=== PATIENT | male | born 1965 | race Caucasian/White ===

== ENCOUNTER 2017-05-05 08:47 | Day surgery (SDC) | payer MEDICAID ==
[2017-05-03 16:06] LABS: BASOPHILS % (AUTO) 0.4 % (0-1); EOSINOPHILS # (AUTO) 0.2 X10'3 (0-0.9); EOSINOPHILS % (AUTO) 1.7 % (0-6); LYMPHOCYTES # (AUTO) 1.6 X10'3 (1.1-4.8); LYMPHOCYTES % (AUTO) 16.5 % (21-51); MEAN CORPUSCULAR HGB CONC 35.1 % (33.0-36.5); MEAN CORPUSCULAR VOLUME 88.5 FL (78-98); MEAN PLATELET VOLUME 7.3 FL (7.4-10.4); MONOCYTES # (AUTO) 0.7 X10'3 (0-0.9); MONOCYTES % (AUTO) 6.9 % (2-12); NEUTROPHILS # (AUTO) 7.2 X10'3 (1.8-7.7); NEUTROPHILS % (AUTO) 74.5 % (42-75); PRE OP HEMATOCRIT 45.4 % (42.0-52.0); PRE OP HEMOGLOBIN 15.9 g/dL (14.0-17.9); PRE OP PLATELET COUNT 255 X10'3 (140-440); RED BLOOD COUNT 5.14 X10'6 (4.70-6.10); RED CELL DISTRIBUTION WIDTH 12.9 % (11.5-14.5)
[2017-05-03 16:50] LABS: ALBUMIN 3.9 G/DL (3.4-5.0); ALKALINE PHOSPHATASE 103 IU/L (46-116); BLOOD UREA NITROGEN 16 MG/DL (7-18); BUN/CREATININE RATIO 16.3 (5.4-32.0); CALCIUM 9.4 MG/DL (8.5-10.1); CHLORIDE 104 MMOL/L (99-107); CREATININE 0.98 MG/DL (0.60-1.10); PRE OP ALT 16 U/L (30-65); PRE OP ANION GAP 11 (8-16); PRE OP AST 17 U/L (10-37); PRE OP BILIRUB, TOTAL 0.4 MG/DL (0.0-1.0); PRE OP GLUCOSE 92 MG/DL (70-104); PRE OP SODIUM 140 MMOL/L (135-145); TOTAL CARBON DIOXIDE 24.7 MMOL/L (24-32); TOTAL PROTEIN 7.9 G/DL (6.4-8.2); eGFR 81 ML/MIN
[2017-05-05] VITALS (12 sets, daily range): BP systolic 95–131; BP diastolic 55–85
[~2017-05-05] VITALS: Ht 175.3 cm; Wt 84.4 kg
[~2017-05-05 08:47] MED LIST: BUPIVAcaine/PF 2.5 mg/ml (0.25%) 30ml vial ONE; NO HOME MEDS; acetaminophen 325mg tablet PO ONE; ceFAZolin 1000mg inj ONE; cefazolin/dext.iso 2gm/50ml 50 ML IV ONE; famotidine 20mg tablet PO ONE; gabapentin 300mg capsule PO ONE; metoclopramide 5 mg/ml inj IV ONE; ringers solution, lacted 1,000 ML IV SCH; tranexamic acid inj. 1,000 MG in normal saline 100ml IV soln 90 ML IV ONE; vancomycin inj 1,500 MG in normal saline 300ml IV soln IV ONE
[2017-05-05] MEDS ORDERED: desflurane 240ml liquid inh. IH ONE (09:30)
[2017-05-05] MEDS ORDERED: MIDAZolam 1mg/ml 10ml vial ONE (09:38)
[2017-05-05] MEDS ORDERED: fentaNYL/PF 50MCG/1 ML 2ML syringe ONE (09:38)
[2017-05-05] MEDS ORDERED: LIDOcaine 2% 5ml jelly ONE (09:47)
[2017-05-05] MEDS ORDERED: clindamycin phosphate 150mg/ml inj. ONE (10:10)
[2017-05-05] MEDS ORDERED: LIDOcaine 1%/PF (10mg/ml) 5ml vial ONE (10:22)
[2017-05-05] MEDS ORDERED: LIDOcaine 2% (20mg/ml) 5ml vial ONE (10:22)
[2017-05-05] MEDS ORDERED: propofol inj 20 ML IV ONE (10:22)
[2017-05-05] MEDS ORDERED: rocuronium 10mg/ml inj IV ONE (10:22)
[2017-05-05] MEDS ORDERED: BUPIVAcaine/PF 2.5 mg/ml (0.25%) 30ml vial ONE (10:22)
[2017-05-05] MEDS ORDERED: dexamethasone sod phosphate 4mg/ml inj. ONE (10:23)
[2017-05-05] MEDS ORDERED: ondansetron/PF 4mg/2ml inj ONE (10:23)
[2017-05-05] MEDS ORDERED: ringers solution, lacted 1,000 ML IV SCH (11:26)
[2017-05-05] MEDS ORDERED: morphine 2 MG/ML inj. syringe IV PRN ×2 (11:30)
[2017-05-05] MEDS ORDERED: acetaminophen 1,000mg/100ml IV 100 ML IV PRN (11:30)
[2017-05-05] MEDS ORDERED: ketorolac trometh. 30mg/ml inj. IV ONE (11:30)
[2017-05-05] MEDS ORDERED: proCHLORperazine 10 MG/2 ml inj IV PRN (11:30)
[2017-05-05] MEDS ORDERED: ondansetron/PF 4mg/2ml inj IV PRN (11:30)
[2017-05-05] MEDS ORDERED: meperidine/PF 50mg/ml syringe IV PRN ×3 (11:30)
== END 2017-05-05 13:40 | disposition home or self-care (01) ==
LOC: PAS 08:47
PROVIDERS: ATTEND Orthopaedic Surgery
DX: S43.101A Unspecified dislocation of right acromioclavicular joint, initial encounter (principal); M19.211 Secondary osteoarthritis, right shoulder; F12.90 Cannabis use, unspecified, uncomplicated; F17.210 Nicotine dependence, cigarettes, uncomplicated; F32.9 Major depressive disorder, single episode, unspecified; Z88.6 Allergy status to analgesic agent; Z88.2 Allergy status to sulfonamides; Z98.890 Other specified postprocedural states; X58.XXXA Exposure to other specified factors, initial encounter; Y93.89 Activity, other specified; Y92.89 Other specified places as the place of occurrence of the external cause; Y99.8 Other external cause status
CPT/HCPCS: 23120; 23415; 23550; 36415; 64415; 80053; 85025; 93005; A4565; C1713; J1100; J2001; J2250; J2405; J2704; J3010; J3370; J3490; J7030; J7120; A7000; J0690

== ENCOUNTER 2021-06-21 15:29 | Emergency (ER) | payer MEDICAID ==
[~2021-06-21] VITALS: Ht 175.3 cm; Wt 76.4 kg
[~2021-06-21 15:29] MED LIST changes: -BUPIVAcaine/PF 2.5 mg/ml (0.25%) 30ml vial ONE; -acetaminophen 325mg tablet PO ONE; -ceFAZolin 1000mg inj ONE; -cefazolin/dext.iso 2gm/50ml 50 ML IV ONE; -famotidine 20mg tablet PO ONE; -gabapentin 300mg capsule PO ONE; -metoclopramide 5 mg/ml inj IV ONE; -ringers solution, lacted 1,000 ML IV SCH; -tranexamic acid inj. 1,000 MG in normal saline 100ml IV soln 90 ML IV ONE; -vancomycin inj 1,500 MG in normal saline 300ml IV soln IV ONE
[2021-06-21 15:46] VITALS: BP 135/87
[2021-06-21] MEDS ORDERED: SULF1TAB49 PO (17:22)
--- NOTE | 2021-06-21 17:34 | NUR ---
Pt leaving AMA, pt does not want I&D to drain shoulder
== END 2021-06-21 17:37 | disposition left against medical advice (07) ==
LOC: ER 15:30
DX: L02.413 Cutaneous abscess of right upper limb (principal); R42 Dizziness and giddiness; H53.2 Diplopia; R22.31 Localized swelling, mass and lump, right upper limb; F12.90 Cannabis use, unspecified, uncomplicated; G89.29 Other chronic pain; Z72.89 Other problems related to lifestyle; Z88.1 Allergy status to other antibiotic agents; Z88.8 Allergy status to other drugs, medicaments and biological substances; Z79.899 Other long term (current) drug therapy
CPT/HCPCS: 73030; 99283

== ENCOUNTER 2021-08-13 17:00 | Emergency (ER) | payer OTHER ==
[~2021-08-13] VITALS: Ht 175.3 cm; Wt 80.0 kg
[2021-08-13 17:32] VITALS: BP 147/91
[2021-08-13] MEDS ORDERED: cephalexin 250mg capsule PO ONE (18:40)
[2021-08-13] MEDS ORDERED: sulfamethoxazole/trimethoprim DS (800/160mg) tablet PO ONE (18:40)
[2021-08-13] MEDS ORDERED: CEPH-585 PO (18:48)
[2021-08-13] MEDS ORDERED: SULF1TAB49 PO (18:48)
--- NOTE | 2021-08-13 19:06 | NUR ---
23 reymundo removed from rt shoulder. applied steri strip to staple removal site. pt tolerated removal well with no complaints nor visible distress
--- NOTE | 2021-08-13 19:06 | NUR ---
po meds x2 given
== END 2021-08-13 19:09 | disposition home or self-care (01) ==
LOC: ER 17:01
DX: S41.001D Unspecified open wound of right shoulder, subsequent encounter (principal); G89.29 Other chronic pain; F12.90 Cannabis use, unspecified, uncomplicated; Z98.890 Other specified postprocedural states; Z72.89 Other problems related to lifestyle; Z88.1 Allergy status to other antibiotic agents; Z79.2 Long term (current) use of antibiotics; V29.9XXD Motorcycle rider (driver) (passenger) injured in unspecified traffic accident, subsequent encounter
CPT/HCPCS: 99283

== ENCOUNTER 2021-08-27 20:41 | Emergency (ER) | payer SELFPAY ==
[~2021-08-27] VITALS: Ht 170.2 cm; Wt 80.0 kg
[2021-08-28 01:58] LABS: BASOPHILS # (AUTO) 0.1 X10'3 (0-0.2); BASOPHILS % (AUTO) 0.5 % (0-1); EOSINOPHILS % (AUTO) 0.5 % (0-6); HEMATOCRIT 41.3 % (42.0-52.0); HEMOGLOBIN 13.8 g/dl (14.0-17.9); LYMPHOCYTES # (AUTO) 2.4 X10'3 (1.1-4.8); LYMPHOCYTES % (AUTO) 22.8 % (21-51); MEAN CORPUSCULAR HGB CONC 33.4 g/dL (33.0-36.5); MEAN CORPUSCULAR VOLUME 86.8 FL (78-98); MEAN PLATELET VOLUME 7.1 FL (7.4-10.4); MONOCYTES # (AUTO) 0.8 X10'3 (0-0.9); MONOCYTES % (AUTO) 7.4 % (2-12); NEUTROPHILS # (AUTO) 7.1 X10'3 (1.8-7.7); NEUTROPHILS % (AUTO) 68.8 % (42-75); PLATELET COUNT 267 X10'3 (140-440); RED BLOOD COUNT 4.76 X10'6 (4.70-6.10); RED CELL DISTRIBUTION WIDTH 14.8 % (11.5-14.5); WHITE BLOOD COUNT 10.3 X10'3 (4.5-11.0)
[2021-08-28 02:18] LABS: ALANINE AMINOTRANSFERASE 29 U/L (12-78); ALBUMIN 3.7 G/DL (3.4-5.0); ALBUMIN/GLOBULIN RATIO 0.9 (1.1-1.5); ALKALINE PHOSPHATASE 124 IU/L (46-116); ANION GAP 9 (8-16); ASPARTATE AMINO TRANSFERASE 22 U/L (10-37); BILIRUBIN,TOTAL 0.2 MG/DL (0.1-1.0); BLOOD UREA NITROGEN 18 MG/DL (7-18); BUN/CREATININE RATIO 16.8 (5.4-32.0); CALCIUM 9.5 MG/DL (8.5-10.1); CHLORIDE 103 MMOL/L (99-107); CREATININE 1.07 MG/DL (0.60-1.10); GLUCOSE 96 MG/DL (70-104); MAGNESIUM 2.2 MG/DL (1.5-2.4); POTASSIUM 3.7 MMOL/L (3.5-5.1); SODIUM 140 MMOL/L (135-145); TOTAL CARBON DIOXIDE 28.3 MMOL/L (24-32); TOTAL PROTEIN 7.8 G/DL (6.4-8.2); eGFR 71 ML/MIN
[2021-08-28] MEDS ORDERED: LEVO500T90 PO (02:43)
[2021-08-28] MEDS ORDERED: levoFLOXACIN 750MG TABLET PO ONE (02:45)
[2021-08-28 03:13] VITALS: BP 120/77
== END 2021-08-28 03:14 | disposition home or self-care (01) ==
LOC: VAS 20:42 → ER 08-28 03:14
DX: M25.511 Pain in right shoulder (principal); F17.200 Nicotine dependence, unspecified, uncomplicated; G89.29 Other chronic pain; F12.10 Cannabis abuse, uncomplicated; Z88.1 Allergy status to other antibiotic agents; Z79.899 Other long term (current) drug therapy
CPT/HCPCS: 36415; 71045; 73030; 80053; 83605; 83735; 84145; 85025; 87040; 99284

== ENCOUNTER 2021-09-11 15:43 | Emergency (ER) | payer MEDICAID ==
[~2021-09-11] VITALS: Ht 175.3 cm; Wt 83.6 kg
[2021-09-11 16:09] VITALS: BP 154/113
[2021-09-11] MEDS ORDERED: AZIT250T PO (17:21)
[2021-09-11] MEDS ORDERED: ALBU18HF2 INH (17:21)
== END 2021-09-11 18:39 | disposition home or self-care (01) ==
LOC: ER 15:45
DX: J45.901 Unspecified asthma with (acute) exacerbation (principal); F17.200 Nicotine dependence, unspecified, uncomplicated; G89.29 Other chronic pain; F12.10 Cannabis abuse, uncomplicated; Z88.1 Allergy status to other antibiotic agents; Z79.899 Other long term (current) drug therapy
CPT/HCPCS: 71045; 99283

== ENCOUNTER 2021-09-14 13:37 | Emergency (ER) | payer MEDICAID ==
[~2021-09-14] VITALS: Ht 175.3 cm; Wt 83.6 kg
[~2021-09-14 13:37] MED LIST changes: +ALBU18HF2 INH; +AZIT250T PO
[2021-09-14] MEDS ORDERED: normal saline 1000ML IV soln IVB ONE (15:25)
--- NOTE | 2021-09-14 15:59 | NUR ---
public address technician at bedside
[2021-09-14 16:00] LABS: BASOPHILS % (AUTO) 0.4 % (0-1); EOSINOPHILS # (AUTO) 0.1 X10'3 (0-0.9); EOSINOPHILS % (AUTO) 1.1 % (0-6); HEMATOCRIT 41.6 % (42.0-52.0); HEMOGLOBIN 13.8 g/dl (14.0-17.9); LYMPHOCYTES # (AUTO) 1.8 X10'3 (1.1-4.8); LYMPHOCYTES % (AUTO) 24.3 % (21-51); MEAN CORPUSCULAR HEMOGLOBIN 29.1 PG (27.0-31.0); MEAN CORPUSCULAR HGB CONC 33.2 g/dL (33.0-36.5); MEAN CORPUSCULAR VOLUME 87.7 FL (78-98); MEAN PLATELET VOLUME 7.3 FL (7.4-10.4); MONOCYTES # (AUTO) 0.5 X10'3 (0-0.9); MONOCYTES % (AUTO) 6.7 % (2-12); NEUTROPHILS % (AUTO) 67.5 % (42-75); PLATELET COUNT 269 X10'3 (140-440); RED BLOOD COUNT 4.74 X10'6 (4.70-6.10); RED CELL DISTRIBUTION WIDTH 14.8 % (11.5-14.5); WHITE BLOOD COUNT 7.5 X10'3 (4.5-11.0)
[2021-09-14 16:15] LABS: ALANINE AMINOTRANSFERASE 50 U/L (12-78); ALBUMIN 3.5 G/DL (3.4-5.0); ALBUMIN/GLOBULIN RATIO 0.9 (1.1-1.5); ALKALINE PHOSPHATASE 122 IU/L (46-116); ANION GAP 12 (8-16); ASPARTATE AMINO TRANSFERASE 33 U/L (10-37); BILIRUBIN,TOTAL 0.2 MG/DL (0.1-1.0); BLOOD UREA NITROGEN 17 MG/DL (7-18); BUN/CREATININE RATIO 19.8 (5.4-32.0); C-REACTIVE PROTEIN 0.27 MG/DL (0.0-0.5); CALCIUM 9.4 MG/DL (8.5-10.1); CHLORIDE 102 MMOL/L (99-107); CREATININE 0.86 MG/DL (0.60-1.10); GLUCOSE 86 MG/DL (70-104); MAGNESIUM 2.2 MG/DL (1.5-2.4); POTASSIUM 4.1 MMOL/L (3.5-5.1); SODIUM 143 MMOL/L (135-145); TOTAL CARBON DIOXIDE 29.4 MMOL/L (24-32); TOTAL PROTEIN 7.4 G/DL (6.4-8.2); eGFR > 90 ML/MIN
[2021-09-14 18:01] VITALS: BP 105/80
== END 2021-09-14 18:04 | disposition home or self-care (01) ==
LOC: ER 13:37
DX: I80.8 Phlebitis and thrombophlebitis of other sites (principal)
CPT/HCPCS: 36415; 71045; 80053; 83605; 83735; 84145; 85025; 86140; 87040; 93971; 96360; 99285; J7030

== ENCOUNTER 2021-12-29 11:09 | Emergency (ER) | payer MEDICAID ==
[~2021-12-29] VITALS: Ht 175.3 cm; Wt 77.0 kg
[2021-12-29 11:54] VITALS: BP 116/73
== END 2021-12-29 15:50 | disposition home or self-care (01) ==
LOC: ER 11:10
DX: M25.511 Pain in right shoulder (principal); M86.9 Osteomyelitis, unspecified; G89.29 Other chronic pain; F12.10 Cannabis abuse, uncomplicated; Z88.8 Allergy status to other drugs, medicaments and biological substances; Z79.899 Other long term (current) drug therapy
CPT/HCPCS: 73030; 99283

== ENCOUNTER 2022-03-26 10:23 | Emergency (ER) | payer MEDICAID ==
[~2022-03-26] VITALS: Ht 175.3 cm; Wt 86.4 kg
[2022-03-26 10:41] VITALS: BP 131/82
[2022-03-26] MEDS ORDERED: ibuprofen 200mg tablet PO ONE (11:30)
[2022-03-26] MEDS ORDERED: HYDR-3965 PO ×2 (12:26)
--- NOTE | 2022-03-26 13:06 | NUR ---
PT STATES HE SPOKE TO ALEJANDRO FROM [facility] TO CONFIRM HOUSING FOR 03/26/2022-03/27/2022.
== END 2022-03-26 13:26 | disposition home or self-care (01) ==
LOC: ER 10:23
DX: T69.9XXA Effect of reduced temperature, unspecified, initial encounter (principal); G89.29 Other chronic pain; F12.10 Cannabis abuse, uncomplicated; Z96.611 Presence of right artificial shoulder joint; Z79.899 Other long term (current) drug therapy; Z79.1 Long term (current) use of non-steroidal anti-inflammatories (NSAID); X58.XXXA Exposure to other specified factors, initial encounter; Y93.89 Activity, other specified; Y92.89 Other specified places as the place of occurrence of the external cause; Y99.8 Other external cause status
CPT/HCPCS: 73030; 99283; A4565

== ENCOUNTER 2023-08-03 12:56 | Outpatient (CLI) | payer MEDICAID | END 2023-08-03 23:59 | disposition home or self-care (01) | LOC: RAD 12:56 | PROVIDERS: ATTEND Orthopaedic Surgery | DX: T84.59XA Infection and inflammatory reaction due to other internal joint prosthesis, initial encounter (principal); M25.511 Pain in right shoulder; M62.89 Other specified disorders of muscle; Z96.611 Presence of right artificial shoulder joint; R91.1 Solitary pulmonary nodule; X58.XXXA Exposure to other specified factors, initial encounter; Y84.8 Other medical procedures as the cause of abnormal reaction of the patient, or of later complication, without mention of misadventure at the time of the procedure; Y92.89 Other specified places as the place of occurrence of the external cause | CPT/HCPCS: 73200 ==

== ENCOUNTER 2023-12-18 13:40 | Emergency (ER) | payer OTHER, MEDICAID ==
[~2023-12-18] VITALS: Ht 175.3 cm; Wt 76.7 kg
[2023-12-18 15:15] VITALS: TEMP 98.1
[2023-12-18 15:27] LABS: BASOPHILS % (AUTO) 0.3 % (0-1); EOSINOPHILS % (AUTO) 0.4 % (0-6); LYMPHOCYTES # (AUTO) 1.3 X10'3 (1.1-4.8); MEAN CORPUSCULAR HGB CONC 33.9 g/dL (33.0-36.5); MEAN PLATELET VOLUME 7.7 FL (7.4-10.4); MONOCYTES # (AUTO) 0.8 X10'3 (0-0.9); WHITE BLOOD COUNT 7.2 X10'3 (4.5-11.0)
[2023-12-18 15:29] LABS: HEMATOCRIT 45.9 % (42.0-52.0); HEMOGLOBIN 15.6 g/dl (14.0-17.9); LYMPHOCYTES % (AUTO) 18.2 % (21-51); MEAN CORPUSCULAR HEMOGLOBIN 31.2 PG (27.0-31.0); MONOCYTES % (AUTO) 11.2 % (2-12); NEUTROPHILS % (AUTO) 69.9 % (42-75); PLATELET COUNT 223 X10'3 (140-440); RED BLOOD COUNT 4.99 X10'6 (4.70-6.10); RED CELL DISTRIBUTION WIDTH 12.7 % (11.5-14.5)
[2023-12-18 15:40] LABS: ALBUMIN 3.5 G/DL (3.4-5.0); ANION GAP 11 (8-16); BLOOD UREA NITROGEN 18 MG/DL (7-18); BUN/CREATININE RATIO 15.4 (10.0-20.0); CALCIUM 9.7 MG/DL (8.5-10.1); CHLORIDE 105 MMOL/L (99-107); CREATININE 1.17 MG/DL (0.60-1.10); GLUCOSE 139 MG/DL (70-104); POTASSIUM 3.5 MMOL/L (3.5-5.1); SODIUM 139 MMOL/L (135-145); TOTAL CARBON DIOXIDE 23.4 MMOL/L (24-32); eCRCL 69 ML/MIN; eGFR 64 ML/MIN
[2023-12-18 16:32] VITALS: BP 114/76; PULSE 64; RESP 13; O2SAT 97
== END 2023-12-18 16:40 | disposition home or self-care (01) ==
LOC: ER 13:41
DX: S06.0XAA Concussion with loss of consciousness status unknown, initial encounter (principal); S40.011A Contusion of right shoulder, initial encounter; S20.219A Contusion of unspecified front wall of thorax, initial encounter; F12.90 Cannabis use, unspecified, uncomplicated; G89.29 Other chronic pain; Z79.899 Other long term (current) drug therapy; Z79.2 Long term (current) use of antibiotics; Z98.890 Other specified postprocedural states; V89.2XXA Person injured in unspecified motor-vehicle accident, traffic, initial encounter; Y93.89 Activity, other specified; Y92.89 Other specified places as the place of occurrence of the external cause; Y99.8 Other external cause status
CPT/HCPCS: 70450; 71045; 73030; 80048; 84484; 85025; 93005; 99285

== ENCOUNTER 2024-08-08 11:28 | Emergency (ER) | payer MEDICAID ==
[~2024-08-08] VITALS: Ht 175.3 cm; Wt 76.4 kg
[2024-08-08 11:29] VITALS: TEMP 98.6
[2024-08-08] MEDS: propofol 10mg/ml 20ml vial IV ONE (11:37)
--- NOTE | 2024-08-08 13:01 | Physician Documentation ---
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 He was sent here from Dr. Dee's office. He states that the shoulder was out for about a week. At this point the goal is to reduce and then schedule him for revision. No palliating or aggravating factors, he states that the shoulder comes out frequently. He had to have it reduced last week at a different hospital. Denies any trauma. Patient denies any concerns for tobacco, alcohol or illicit substances use Tetanus within 5 years?: Yes Medication Reconciliation Allergies: Coded Allergies: No Known Allergies (Unverified , 03/26/22) Scheduled Albuterol Sulfate (Ventolin Hfa), 2 PUFFS INH Q4HPRN Azithromycin (Zithromax), 1 DOSPAK PO UD Miscellaneous Medications Home Med List (No Home Medications), (Reported) Past Medical History Past Medical History: Chronic Pain Past Surgical History: orthopedic surgeries Smoking Status: Current every day smoker Alcohol Use: Occasionally Drug Use: marijuana Lives In: Home Occupation: employed Review of Systems ROS 10 point review of systems was performed and unless noted above in HPI is negative for acute process/complaint. Physical Exam Vital Signs: Temperature: 98.6, Source: Oral, Heart Rate: 78, Respiratory Rate: 17, BP: 133/76, Pulse Oximetry: 95, Weight: 76.400 Oxygen Flow Rate: 0 Physical Exam Physical examination: GENERAL: Awake, alert, oriented, GCS 15, no apparent distress, non-toxic appearing, answers questions, follows commands appropriately. HEENT: Atraumatic, normocephalic, pupils equal, extraocular muscles intact Active gross movements, sclerae anicteric, mucus membranes moist, no stridor. NECK: Midline, no JVD CARDIOVASCULAR: Good skin perfusion without evidence of pallor, mottling. PULMONARY: Nonlabored, symmetric chest rise, no audible wheezing, no accessory muscle use, no respiratory distress, speaking in full sentences. GASTROINTESTINAL: Not distended. NEUROLOGIC: Lucid with normal mental status. Normal facial symmetry. Moves all extremities symmetrically and with purpose. No truncal ataxia. Speech is fluid without evidence of dysarthria or aphasia, no focal deficits appreciated. EXTREMITIES: Acute deformities Skin: warm, dry PSYCHIATRIC: Normal affect, normal insight, normal concentration. Focused exam: [] Obvious deformity to the right shoulder with a anterior dislocation in his prosthesis. Neurovascularly intact distally. Procedures Joint Reduction Joint Reduction : Procedure Note Joint reduction was performed by Dr. Dee Moderate Sedation : Procedure Note Procedural (Conscious) Sedation Authorized by: Schulack. Payne Performed by: Myself Consent: Written consent obtained (see nursing note) Risks and benefits: risks, benefits and alternatives were discussed Consent given by: patient Patient understanding: states understanding of the procedure being performed Patient consent: understanding of the procedure matches consent given Patient identity confirmed: verbally with patient and arm band Time out: Immediately prior to procedure a "time out" was called to verify the correct patient, procedure, equipment, program support clerk and site/side marked as required. Medication IV: 1 milligrams/kilogram of propofol was given as an induction dose and 0.5 mg per kg given as a maintenance in his Complication: Tolerated well without complication. No hypoxic episodes. Time: Total intra-service time with patient was 17 minutes. Progress Results/Orders Results/Orders Orders - FRAN GIBBS DO Shoulder, Complete (Min 2 Vws) (08/08/24 12:42) Completed Orders - FRAN GIBBS DO Propofol Inj (Diprivan Inj) (08/08/24 11:45) Vital Signs 08/08/24 08/08/24 08/08/24 08/08/24 11:29 12:04 12:16 12:43 Temp 98.6 Pulse 93 76 69 68 Resp 16 16 22 16 B/P (MAP) 121/83 118/89 (99) 110/72 Pulse Ox 97 95 97 96 O2 Delivery Nasal Cannula Nasal Cannula O2 Flow Rate 0 0 5.0 2.0 08/08/24 12:50 Pulse 78 Resp 17 B/P (MAP) 133/76 (95) Pulse Ox 95 O2 Delivery Room Air O2 Flow Rate 0 Medical Decision Making Findings Facility Status: ED Holds, [facility] process The plan was discussed with the patient, who demonstrates clear understanding of the plan and is in agreement with the plan unless otherwise noted in the chart. All questions have been answered, all concerns were addressed unless otherwise documented. I was available throughout their ED stay for frequent reassessment and questions. Differential Diagnoses (considered and possible or likely): [Prosthetic shoulder reductions, unstable shoulder, pain] ??Differential Diagnoses (considered and unlikely, not requiring evaluation currently): [] MDM Data Please see [facility] for the following: Independent Historians and external Records Review. Historian: [Patient] Independent Historians: ?[Dr. Dee] Medication Management: [Reviewed medication list] Social History and determinants: [Reviewed] Please see the body of the note for the following: Any independent inter pretations of ECG, imaging studies. All vitals signs/haemodynamics, ordered tests were independently reviewed and interpreted by myself. Nursing triage complaint and vitals reviewed, additional nursing notes were reviewed as available and I agree unless otherwise noted or documented in contradiction in the chart Vital Signs: Independently reviewed Labs: Independently interpreted Imaging: Independently interpreted Old Medical Records: Independently reviewed, see [facility] for relevant summary and information Pulse Oximetry: [99%] interpreted as [normal on room air] by me [Youth Care Worker: [Regular Rate, Regular rhythm, no ectopy, NSR] reviewed and interpreted by me] Additionally notably showing: [Hemodynamically stable throughout awake and sedated state] unfortunately, post reduction x-ray shows that the shoulder is dislocated still. This is despite successful reduction. Tests considered but not ordered include: [Hematologic workup and imaging has been considered but does not appear to be necessary given clinical nature of diagnosis] Social Determinants of Health Impact: Patient was evaluated in [facility], [facility] [place] to healthcare due to below par ratio of patient to medical providers. [] Comorbid Conditions Impacting Present Evaluation and Care/Treatment: [Frequent dislocation of shoulder] Management Discussions with other Healthcare Providers: [Dr. Dee, orthopedic surgeon] Treatment and Disposition Medication Management (Given or considered): []. See EMR for details Consideration for Hospitalization/Escalation/Deescalation of Care: Admission for observation has been considered, [however the patient is able to tolerate p.o., their symptoms are controlled, they are able to rely on oral medications, and their chief complaint/diagnosis can be managed on outpatient basis.] ?ED Course:?[Shoulder was successfully reduced, however when patient is set up, the shoulder dislocated again. Dr. Dee feels that patient just needs a revision. He advises discharge with outpatient follow-up.] ?Shared decision making:?[Patient is hemodynamically stable for discharge home with follow with their primary care provider. [ ] Specific and cautious return precautions provided and discussed with full understanding. Any incidental findings were also discussed and follow up recommendations given. [] All questions answered. Patient/family were able to verbalize back return precautions. Patient/family agree to plan. Copies of imaging and laboratory studies were provided.] Code status:?FULL Please see the full Electronic Medical Record for full details of nursing documentation, medications list, other records of complete past medical history and conditions, vital signs, laboratory studies, and any radiologic study interpretations by radiologists. Portions of this note were completed using [employer] dictation software and as a result there may exist minor errors in spelling. I have reviewed elements of past family and social history and agree as included in note. Departure Disposition: 01 HOME / SELF CARE / HOMELESS Impression: Primary Impression: Shoulder dislocation, recurrent Condition: Stable Discharge Instructions: Shoulder Dislocation Additional Instructions: Follow-up with Dr. Dee to schedule a revision surgery Referrals: NO PRIMARY CARE PROVIDER (PCP) Education Educated: Patient Educated regarding: diagnosis, treatment, prognosis, need for follow up Signature Scribe Signature: No scribe Attestation: This note accurately reflects clinical decisions, work performed by myself, Fran Gibbs, FRAN MARCELINO DO August 08, 2024 13:01
[2024-08-08 13:05] VITALS: BP 121/76; PULSE 76; RESP 17; O2SAT 97
== END 2024-08-08 13:11 | disposition home or self-care (01) ==
LOC: ER 11:29
DX: M24.411 Recurrent dislocation, right shoulder (principal); F17.200 Nicotine dependence, unspecified, uncomplicated; F12.90 Cannabis use, unspecified, uncomplicated; Z79.899 Other long term (current) drug therapy; Z72.89 Other problems related to lifestyle
CPT/HCPCS: 23650; 99152; 99285; J7030; 94760; A4565; A4620

== ENCOUNTER 2025-01-10 11:48 | Inpatient (IN) | payer MEDICAID ==
[~2025-01-10] VITALS: Ht 175.3 cm; Wt 87.5 kg
[~2025-01-10 11:48] MED LIST changes: -ALBU18HF2 INH; -AZIT250T PO
--- NOTE | 2025-01-10 15:04 | Physician Documentation ---
History of Present Illness General Chief Complaint: Post-operative complication Stated Complaint: POST OP COMPLICATIONS Time Seen by MD: 14:33 Primary Medical Doctor: None Mode of Arrival: POV History of Present Illness Initial Comments Postoperative right upper extremity infection, status post surgery 01/03 secondary to fracture distal prosthesis. Has developed redness and swelling to the right upper extremity over the last 3-4 days. Has a fair amount of erythema without obvious abscess, purulent discharge. No joint involvement. No reported fever. Decision to Admit upon in his presentation that patient's bedside. Medication Reconciliation Allergies: Coded Allergies: No Known Allergies (Unverified , 03/26/22) Miscellaneous Medications Home Med List (No Home Medications), (Reported) Past Medical History Past Medical History: Chronic Pain Past Surgical History: orthopedic surgeries Smoking: Cigarettes, Less than 1 pack/day Alcohol Use: Occasionally Drug Use: marijuana Lives In: Home Occupation: employed Physical Exam Physical Exam Vital Signs: Temperature: 98.5, Source: Temporal, Heart Rate: 95, Respiratory Rate: 18, BP: 120/86, Pulse Oximetry: 96, Weight: 87.500 Progress Results/Orders Results/Orders Orders - PORTIA BEGUM PAC Urinalysis, Cult If Indicated (01/10/25 15:00) Culture Blood (01/10/25 15:00) Chest,Single View (01/10/25 15:00) Humerus (2vws) (01/10/25 15:00) Vancomycin 1,500mg Inj. (Vancomycin 1,50 (01/10/25 15:00) Ct Upper Extremities (01/10/25 ) Page Hospitalist (01/10/25 16:40) Fill Out Med Reconciliation (01/10/25 16:40) Completed Orders - PORTIA BEGUM PAC Electrocardiogram (01/10/25 15:00) Cbc/Diff (01/10/25 15:00) MG (01/10/25 15:00) Chest,Single View (01/10/25 15:00) Procalcitonin (01/10/25 15:00) BMP (01/10/25 15:00) Lacticsepsis (01/10/25 15:00) C-Reactive Protein (01/10/25 15:00) Humerus (2vws) (01/10/25 15:00) Morphine 4mg/Ml Inj. (Morphine Inj.) (01/10/25 15:00) Iohexol 300mg/Ml 100ml Inj. (Omnipaque-3 (01/10/25 16:42) Medications Received in ER Medications (Trade) Dose Ordered Sig/Jeison Route PRN Reason Start Time Stop Time Status Last Admin Dose Admin Vancomycin HCl 1500 mg/Sodium Chloride 300 ml @ 150 mls/hr ONCE IV 01/10/25 15:00 01/10/25 15:57 150 MLS/HR (morphine inj.) 4 mg ONCE ONCE IV 01/10/25 15:00 01/10/25 15:03 DC 01/10/25 15:22 4 MG Vital Signs 01/10/25 01/10/25 01/10/25 11:54 14:44 16:32 Temp 98.5 98.5 Pulse 95 62 Resp 18 18 B/P (MAP) 120/86 Pulse Ox 96 98 O2 Flow Rate 0 Laboratory Tests Test 01/10/25 15:20 White Blood Count 11.9 H Red Blood Count 3.93 L Hemoglobin 11.8 L Hematocrit 34.6 L Mean Corpuscular Volume 88.0 Mean Corpuscular Hemoglobin 30.0 Mean Corpuscular Hemoglobin Concent 34.1 Red Cell Distribution Width 12.9 Platelet Count 358 Mean Platelet Volume 6.8 L Neutrophils (%) (Auto) 79.3 H Lymphocytes (%) (Auto) 12.3 L Monocytes (%) (Auto) 7.2 Eosinophils (%) (Auto) 0.8 Basophils (%) (Auto) 0.4 Neutrophils # (Auto) 9.4 H Lymphocytes # (Auto) 1.5 Monocytes # (Auto) 0.9 Eosinophils # (Auto) 0.1 Basophils # (Auto) 0.1 CBC Comment Sodium Level 135 Potassium Level 4.0 Chloride Level 103 Carbon Dioxide Level 26.0 Anion Gap 6 L Blood Urea Nitrogen 28 H Creatinine 1.04 Estimated GFR/1.73 m2 73 BUN/Creatinine Ratio 26.9 H Glucose Level 96 Lactic Acid Level 0.7 Calcium Level 9.1 Magnesium Level 2.5 H C-Reactive Protein 5.05 H Albumin 3.0 L Procalcitonin < 0.05 Chemistry Comments Medical Decision Making Additional information obtaine: old records, PCP Findings 59-year-old male who is status post surgery to the right Upper extremity developed increased pain erythema a incision site. Presents to the emergency department for evaluation. History and physical consistent with postoperative infection requiring IV antibiotics and laboratory workup. Leukocytosis noted. X-ray prelim without obvious gas. CT imaging pending. Discussed case with the orthopedist Dr. Dee who request patient to be admitted to the hospitalist with ID to follow up. Patient remains normotensive nonseptic appearing. Differential Diagnosis Differentials include but not limited to osteo, superficial wound infection, necrotizing fasciitis, hardware infection, cellulitis or abscess. Departure Disposition: 09 ADMITTED INPATIENT Admitted to Inpatient Unit: to hospitalist, to orthopedist Impression: Primary Impression: Right upper extremity postoperative infection Additional Impression: MRSA carrier Referrals: NO PRIMARY CARE PROVIDER (PCP) Signature Scribe Signature: . Attestation: . PORTIA BEGUM [facility] Jan 10, 2025 15:04
[2025-01-10] MEDS: morphine 4 MG/ML inj SYRINge IV ONE (15:22)
[2025-01-10 15:44] LABS: MEAN PLATELET VOLUME 6.8 FL (7.4-10.4); RED CELL DISTRIBUTION WIDTH 12.9 % (11.5-14.5)
--- NOTE | 2025-01-10 15:45 | ELECTROCARDIOGRAPH REPORT ---
[facility] Test Date: 2025-01-10 Test Time: 15:41:26 Pat Name: JUAN MABRY Department: EMERGENCY ROOM [id number] Room: ORTHO [facility] Gender: M Inspector [employer]: : 1965 Requested By: PORTIA BEGUM Order Number: [id number] Reading MD: Dr. Tristan Chao Measurements Intervals [place] Rate: 65 P: -38 TN: 158 QRS: 65 QRSD: 94 T: 58 QT: 400 QTc: 416 Interpretive Statements Age not entered, assumed to be 50 years old for purpose of ECG interpretation Incomplete analysis due to missing data in precordial lead(s) Sinus rhythm Probable left atrial enlargement ST elev, probable normal early repol pattern Missing lead(s): V2 Electronically Signed On 01-12-2025 7:41:[address] Tristan Chao Please click the below link to view image of tracing.
[2025-01-10 15:55] LABS: CREATININE 1.04 MG/DL (0.60-1.10); TOTAL CARBON DIOXIDE 26.0 MMOL/L (24-32); eCRCL 76 ML/MIN; eGFR 73 ML/MIN
[2025-01-10] MEDS: VANCOMYCIN 1,500MG inj. 1,500 MG in normal saline 500ml IV soln 300 ML IV SCH (15:57)
[2025-01-10] MEDS ORDERED: iohexol 300mg/ml 100ml inj. ONE (16:42)
[2025-01-10] MEDS ORDERED: potassium Cl 20 mEq SR tablet PO PRN ×2 (16:45)
[2025-01-10] MEDS ORDERED: HYDROcodone/acetaminophen 10/325mg tab PO PRN (16:45)
[2025-01-10] MEDS ORDERED: HYDROcodone/acetaminophen 5mg/325mg tablet PO PRN (16:45)
[2025-01-10] MEDS ORDERED: HYDROmorphone inj. 0.5 MG/0.5 ML DISP.SYRIN IV PRN (16:45)
[2025-01-10] MEDS ORDERED: potassium Cl 40MEQ/1/2NS 520ml 520 ML IV PRN (16:45)
[2025-01-10] MEDS ORDERED: HYDROmorphone/PF 0.2 MG/ML SYRINGE IV PRN (16:45)
[2025-01-10] MEDS ORDERED: magnesium sulf-water 4G/100mL 100 ML IV PRN (16:45)
[2025-01-10] MEDS ORDERED: magnesium hydroxide 30ml (MOM) UD suspension PO PRN (16:45)
[2025-01-10] MEDS ORDERED: mag hydrox/Alum hydrox/simeth 30ml oral suspension PO PRN (16:45)
[2025-01-10] MEDS ORDERED: magnesium Cl slow-release 64mg tablet PO PRN (16:45)
[2025-01-10] MEDS ORDERED: ondansetron/PF 4mg/2ml inj IV PRN (16:45)
[2025-01-10] MEDS ORDERED: magnesium sulf-water 2g/50mL 50 ML IV PRN (16:45)
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
--- NOTE | 2025-01-10 18:12 | RADIOLOGY REPORT ---
EXAM: CT CT UPPER EXTREMITIES W/ IV CONTRAST INDICATION: Infection;post operative complications-surgery x9 days ago TECHNIQUE: Axial images of right upper extremity with contrast have been obtained along with coronal and sagittal reformatted images. All CT scans at this facility use dose modulation, iterative reconstruction, and/or weight based dosing when appropriate to reduce radiation dose to as low as reasonably achievable. COMPARISON: DI HUMERUS (2VWS) on DOS: 01/10/25 FINDINGS: BONES: Right shoulder arthroplasty reinforcing anteriorly applied plate and screw construct of the proximal humerus. Prior distal clavicular resection. MUSCLES: Significant soft tissue swelling along the anterior surgical approach with a possible insinuating fluid collection indeterminate however measuring 3.5 x 2 cm (axial 59). Asymmetric anterior compartment of forearm intramuscular swelling. Anterior upper arm skin thickening. JOINT SPACES: No definitive joint effusion OTHER: None. IMPRESSION: 1. Significant soft tissue swelling along the anterior surgical approach with a possible insinuating fluid collection indeterminate however measuring 3.5 x 2 cm. 2. Asymmetric anterior compartment of forearm intramuscular swelling.
[2025-01-10] MEDS: K and/or MAG REPLACEMENT MC SCH (20:00)
[2025-01-10] MEDS: heparin, porcine 5000 units/ml vial SQ SCH (20:00)
[2025-01-10] MEDS: docusate sod 100mg capsule PO SCH (20:00)
[2025-01-10 21:01] VITALS: BP 102/58; PULSE 60; RESP 16; TEMP 98.3; O2SAT 97
[2025-01-10 22:22] VITALS: RESP 16; O2SAT 95
[2025-01-11] VITALS (7 sets, daily range): BP systolic 65–148; BP diastolic 48–85; PULSE 60–83; RESP 12–18; TEMP 97.2–99.3; O2SAT 95–98
[2025-01-11 05:55] LABS: APTT 28 SECONDS (22-32); INR 1.0 INR
--- NOTE | 2025-01-11 09:44 | RADIOLOGY REPORT ---
CLINICAL HISTORY: SEPSIS TECHNIQUE: 2 views of the right humerus. COMPARISON: CT right shoulder 01/10/2025. FINDINGS: Interval postsurgical change with reverse right shoulder prosthesis with periprosthetic humeral diaphysis fracture, fixed by sideplate and several screws. Alignment is near anatomic. Hardware appears intact. Postsurgical changes in the distal clavicle. There soft tissue swelling in the arm. IMPRESSION: 1. Interval postsurgical change with reverse right shoulder prosthesis with periprosthetic fracture, fixed by sideplate and several screws. 2. Alignment is near anatomic. 3. Hardware appears intact.
--- NOTE | 2025-01-11 09:45 | RADIOLOGY REPORT ---
CHEST RADIOGRAPH Indication: SEPSIS Technique: Single frontal view of the chest was obtained Comparison: DI CHEST,SINGLE VIEW on DOS: 01/01/25 FINDINGS: Lines and Tubes: None Lungs: No focal consolidation. Pleura: No effusion. No pneumothorax. Cardiomediastinal contours: Unremarkable Bones: No acute osseous abnormality. There is a right shoulder prosthesis. IMPRESSION: No acute cardiopulmonary disease.
[2025-01-11] MEDS ORDERED: morphine 4 MG/ML inj SYRINge IV PRN (10:31)
[2025-01-11] MEDS: normal saline 1000ml 1,000 ML IV SCH (10:42)
[2025-01-11] MEDS: vancomycin/NS 1 GM ADD-VANTAGE 250 ML IV SCH (11:12)
--- NOTE | 2025-01-11 17:15 | PROGRESS NOTE ---
Progress Note Orthopedic Ortho Consult Progress Note The Eugene is well known to me from a recent open reduction and internal fixation of right humerus fracture. He presents with one day of pain and swelling and redness of the right arm. No drainage. He is admitted through the emergency room last night with an obvious infection of the right humerus. Objective Vital Signs Date Time Temp Pulse Resp B/P (MAP) Pulse Ox O2 Delivery O2 Flow Rate FiO2 01/11/25 14:00 98.1 65 12 109/58 (75) 98 Room Air 01/10/25 22:22 0.0 Result Diagram: 01/10/25 1520 01/10/25 1520 Alert and Oreinted x4, Appropriate, In no acute distress, Dressing clean and dry Objective There is a significant amount of erythema in the upper arm surrounding the incision particularly at the distal 3rd. There is some tenderness around the incision. I have palpated firmly around the incision I can not palpate any subcutaneous fluctuance and have not been able to express any purulence side of the incision. Patient states he feels substantially better and that his upper arm is much less tender than it was yesterday. CT scan is reviewed and I do not see any obvious abscess. Labs were reviewed and he definitely has a lymphocytosis and evidence of infection. Problem/Assessment/Plan Patient has an obvious infection of his surgical site on the right humerus. He does not however have any abscess formation, any obvious purulence, or indication for emergency surgery. He appears to be resolving satisfactorily within the 1st 24 hours of intravenous antibiotic therapy. I would therefore recommend continued nonsurgical treatment with IV antibiotics. We will recheck tomorrow. If there is a deterioration in condition then he will be taken to the operating. PRATIBHA REA MD Jan 11, 2025 17:15
[2025-01-11 18:01] LABS: MEAN PLATELET VOLUME 7.2 FL (7.4-10.4); RED CELL DISTRIBUTION WIDTH 13.5 % (11.5-14.5)
[2025-01-11] MEDS: JUVEN Smoothie Arginine/Glut./Ca2+Bmb (Juven 19.3pkt) 240ml cup PO SCH (18:06)
[2025-01-11 18:19] LABS: CREATININE 0.91 MG/DL (0.60-1.10); PHOSPHORUS 2.3 MG/DL (2.3-4.5); TOTAL CARBON DIOXIDE 27.5 MMOL/L (24-32); eCRCL 87 ML/MIN; eGFR 85 ML/MIN
[2025-01-11] MEDS: CefTRIAXone/D5W-Rocephin 1gm 50 ML IV SCH (19:27)
--- NOTE | 2025-01-11 19:35 | PROGRESS NOTE- Residence ---
Progress Note - Resident Providers to CC Resident Creating Document: KRISTIE ANDERSON RES ~ Antibiotic Timeout Antibiotic Ordered?: Yes Subjective patient seen and examined on bedside,reports pain shoulder pain improving Objective Vital Signs Date Time Temp Pulse Resp B/P (MAP) Pulse Ox O2 Delivery O2 Flow Rate FiO2 01/11/25 18:00 97.2 75 15 148/85 (106) 97 Room Air 01/10/25 22:22 0.0 Result Diagram: 01/11/25 1716 01/11/25 1716 General: awake, alert oriented to place, time, and person, patient aggresive HEENT: No pallor present, no icterus, moist mucous membranes Neck: No masses and tenderness Resp: Unlabored. Lungs clear to auscultation bilaterally. Chest: Normal expansion. Cardiovascular: Regular Rate and rhythm, normal S1 and S2 without murmur, rub or gallop Abdomen: Soft and mildly tender in epigastrium, no organomegaly, no guarding and rigidity, bowel sounds present Neuro: No focal weakness in the upper and lower limb muscles, power of the muscles 5/5 bilateral upper and lower extremities, normal reflexes bilaterally. Cranial nerves intact Upper Extremities: Right shoulder erythematous, warm, tender, swollen Left upper extermity: no cyanosis clubbing or edema. lower Extremities: No cyanosis,clubbing or edema Skin: Warm and Dry. Psych: patient aggresive. Coagulation Studies Laboratory Tests Test 01/11/25 04:47 Prothrombin Time 10.0 SECONDS (9.0-12.0) INR International Normalized Ratio 1.0 INR Activated Partial Thromboplast Time 28 SECONDS (22-32) Coagulation Comments Advance Care Planning Advanced Care plannin - 30 Minutes Plan Plan Additional Plan This is a 59-year-old male presented in ER after surgery, of right shoulder, presenting with complain of right shoulder pain. Open Reduction and Internal fixation of Right Humeral Periprosthetic shaft fracture (Surgery done in Dec 2024) Possible Cellulitis/Ostemyelitis Surgery done in Dec 2024 on POA leuckocytes elevated, today leuckocytosis resolved. CRP and ESR elevated Procal normal Patient received once dose of vancomycin in ER Started patient on vancomycin and ceftriaxone Preliminary blood culture negative waiting for final culture Consulted ID awaiting recommendation CT Extremity shows: 1. Significant soft tissue swelling along the anterior surgical approach with a possible insinuating fluid collection indeterminate however measuring 3.5 x 2 cm. Asymmetric anterior compartment of forearm intramuscular swelling. Consulted orthopedic who recommended recommend continued nonsurgical treatment with IV antibiotics and reassess tomorrow. If there is a deterioration in condition then patient will be taken to the operating. Tobacco use disorder/Marijuana use disorder Substance use navigator consulted [facility] awaiting Code status: full code DVT prophylaxis Heparin hold possbile surgery tomorrow. GI prophylaxis pantoprazole 40 mg IV Date of Service: Jan 11, 2025 Billing Provider: SADIA RICHARDS MD Common Visit Codes: [id number] INP/OBS CARE(HIGH) KRISTIE ANDERSON, RES Jan 11, 2025 19:35 SADIA RICHARDS MD Jan 12, 2025 06:50
[2025-01-11] MEDS: morphine 4 MG/ML inj SYRINge IV PRN (23:43)
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
[2025-01-12 06:00] VITALS: BP 97/60; PULSE 77; RESP 16; TEMP 98.3; O2SAT 94
[2025-01-12 08:00] VITALS: RESP 14; O2SAT 98
--- NOTE | 2025-01-12 08:24 | PROGRESS NOTE ---
Progress Note Ortho Ortho Post Op Day #: Other Follow Up Progress Note Patient was admitted 01/10/25 he has had an uneventful admission thus far. Cellulitic infection near recent surgical site appears to be stable with IV antibiotics. Today the site was unchanged in size, erythema or warmth. No notable fluctuance at the site. No current concern for abscess formation. Erythematous perimeter was outlined, we will continue to monitor at this point. IV abx appear to be working for now possible I&D of the surgical site if worsening or improvement not noted. ROS ROS No new complaints Exam Exam: Alert and Oreinted x4, Vital signs are stable, Distal neurovasc intact Problem/Assessment/Plan Assessment\Plan: Doing Well Results/Orders Result Diagram: 01/11/25 1716 01/11/25 1716 JOSSY HARRELL PAC Jan 12, 2025 08:24
[2025-01-12] MEDS ORDERED: HYDROcodone/acetaminophen 5mg/325mg tablet PO PRN ×2 (08:55)
[2025-01-12 09:00] VITALS: BP 98/53; PULSE 64
[2025-01-12 09:41] VITALS: BP 106/71; PULSE 63; RESP 14; TEMP 98.1
[2025-01-12 10:00] VITALS: BP 106/71; PULSE 63; RESP 14; TEMP 98.1
--- NOTE | 2025-01-12 11:39 | PROGRESS NOTE ---
Progress Note Dictate Providers to CC ~ Subjective Subjective: Blood pressure was apparently low overnight, but he was asymptomatic. He feels that right arm has improved a bit. Objective Objective: GENERAL: In general, he is a middle-aged male currently lying in bed, looking stable. LUNGS: Clear to auscultation bilaterally. HEART: Regular rate and rhythm. ABDOMEN: Soft, nontender, and nondistended. EXTREMITIES: The right upper arm has some soft tissue swelling. There is erythema around the incision at the mid-portion. Range of motion at the elbow is a bit restricted without full extension. There is no drainage or fluctuance at this time. Lab Results: 01/11/25 17101/11/251715 Problem\Assessment\Plan Additional Plan Postoperative infection at the right upper arm following internal fixation of right humerus periprosthetic fracture. Complex surgical history involving the shoulder with past replacement and additional revisions. Current picture most consistent with superficial infection (cellulitis) Change vancomycin to oral linezolid Watch for one more day Plan for 10 days of oral linezolid outpatient Follow up with TROY Vega MD Jan 12, 2025 11:39
[2025-01-12] MEDS ORDERED: LACT1CAP26 PO (13:27)
[2025-01-12] MEDS ORDERED: LINE600T14 PO (13:27)
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
[2025-01-12] MEDS ORDERED: VANCOMYCIN LEVEL IV ONE (20:30)
[2025-01-13] MEDS ORDERED: HYDR-3973 PO (08:03)
== END 2025-01-12 14:45 | disposition home or self-care (01) | DRG 721 ==
LOC: ER 11:49 → ED HOLD 16:47 → ORTHO 4S 21:05
PROVIDERS: ADMIT Internal Medicine; ATTEND Internal Medicine
DX: T81.40XA Infection following a procedure, unspecified, initial encounter (principal); M86.8X1 Other osteomyelitis, shoulder; F12.90 Cannabis use, unspecified, uncomplicated; F17.210 Nicotine dependence, cigarettes, uncomplicated; L03.113 Cellulitis of right upper limb; Y83.8 Other surgical procedures as the cause of abnormal reaction of the patient, or of later complication, without mention of misadventure at the time of the procedure; Z96.611 Presence of right artificial shoulder joint; G89.29 Other chronic pain; Y92.89 Other specified places as the place of occurrence of the external cause; Z22.322 Carrier or suspected carrier of Methicillin resistant Staphylococcus aureus
CPT/HCPCS: 36415; 71045; 73060; 73201; 80048; 80053; 83036; 83605; 83735; 84100; 84145; 85025; 85610; 85651; 85730; 86140; 87040; 93005; 96365; 96375; 99285; A6258; A6446; C1729; G0378; J0696; J2270; J3373; J7030; J7040; Q9967